=== PATIENT | female | born 1975 | race Caucasian/White ===

== ENCOUNTER 2016-08-18 06:00 | Day surgery (SDC) | payer OTHER ==
[~2016-08-18] VITALS: Ht 162.6 cm; Wt 140.0 kg
[~2016-08-18 06:00] MED LIST: ATIVAN1 MG PO; CARAFATE1 GM PO; CELEXA40 MG PO; CLARITIN,ALAVAR10 MG PO; COUMADIN10 MG PO; DYAZIDE, MA1 CAPSULE PO; IRON325 MG PO; LOVENOX120 MG/0.8 SC; NAPROXEN500 MG PO; NEURONTIN300 MG PO; PRAVACHOL80 MG PO; PRILOSEC40 MG PO; PROBIOTIC1 EAC1 PO; TRAZODONE HCL150 MG PO; TYLENOL ARTHRI650 MG PO; VICODIN 5-3001 EACH PO; VITAMIN D2000 UNIT PO; WARFARIN SODIUM10 MG PO; WELLBUTRIN XL150 MG PO; XARELTO20 MG PO; ZANTAC150 MG PO
[2016-08-18 07:01] VITALS: BP 143/64
[2016-08-18 07:51] LABS: PROTHROMBIN TIME 10.4 (9.2-11.2); PTT 30.1 (25-32)
[2016-08-18] MEDS ORDERED: PERCOCET 5/31 TABLET PO (09:01)
[2016-08-18 09:48] VITALS: BP 114/63
[2016-08-18 10:24] VITALS: BP 136/73
== END 2016-08-18 10:42 | disposition home or self-care (01) ==
LOC: SDC 06:00
PROVIDERS: Internal Medicine Cardiovascular Disease
DX: N92.0 Excessive and frequent menstruation with regular cycle (principal); Z30.2 Encounter for sterilization; I10 Essential (primary) hypertension; E66.01 Morbid (severe) obesity due to excess calories; G47.30 Sleep apnea, unspecified; K21.9 Gastro-esophageal reflux disease without esophagitis; E78.00 Pure hypercholesterolemia, unspecified; G62.9 Polyneuropathy, unspecified; F41.8 Other specified anxiety disorders; Z86.711 Personal history of pulmonary embolism; Z86.718 Personal history of other venous thrombosis and embolism; Z79.01 Long term (current) use of anticoagulants; Z88.0 Allergy status to penicillin; Z68.43 Body mass index [BMI] 50.0-59.9, adult; Z82.49 Family history of ischemic heart disease and other diseases of the circulatory system
CPT/HCPCS: 85610; 85730; J0330; J1100; J1580; J2250; J2405; J3010; J7050